=== PATIENT | male | born 1970 | race Caucasian/White ===

== ENCOUNTER → 2019-10-17 | Outpatient (CLI) | payer OTHER, SELFPAY | PROVIDERS: Family Provider Nurse Practitioner; Visit Provider Internal Medicine Cardiovascular Disease | DX: R07.89 Other chest pain (principal) | CPT/HCPCS: 93017; 93350 ==

== ENCOUNTER 2019-11-15 16:21 | Outpatient (CLI) | payer OTHER, SELFPAY ==
--- NOTE | 2019-11-15 16:53 | MR_ITS ---
WS: [id number] MRI LEFT KNEE NONCONTRAST TECHNIQUE: Axial PD, coronal PD fat sat, coronal PD, sagittal PD, and sagittal PD fat-sat images obta ined. CLINICAL INFORMATION: PAIN IN LEFT KNEE COMPARISON: None. FINDINGS: Distal quadriceps and patella tendons are intact. Anterior cruciate and posterior cruciate ligaments are intact. Prepatellar soft tissue edema. Chronic thinning of both medial and lateral meniscus. No acute appearing meniscal tears. Mild chondromalacia patella. No subchondral edema. Medial and lateral collateral ligaments are intact . Hypertrophic changes along the joint line. Mild chondromalacia involving the medial and lateral jesse nt compartments. MR/MR knee LT wo con* [id number] IMPRESSION: 1. Anterior and posterior cruciate ligaments are intact. 2. Mild chondromalacia patella. 3. Joint space narrowing with mild chondromalacia involving the medial and lat eral joint compartments. 4. Chronic thinning of the medial and lateral meniscus. No acute appearing men iscal tears.
== END 2019-11-15 16:22 | disposition home or self-care (01) ==
LOC: RADSHAW 16:21
PROVIDERS: Family Provider Nurse Practitioner; PCP Nurse Practitioner; Visit Provider Nurse Practitioner
DX: M22.42 Chondromalacia patellae, left knee (principal); M25.562 Pain in left knee
CPT/HCPCS: 73721

== ENCOUNTER → 2020-01-22 10:09 | Outpatient (BNVA) | payer OTHER, SELFPAY | PROVIDERS: Family Provider Nurse Practitioner; PCP Nurse Practitioner; Referring Provider Nurse Practitioner; Visit Provider Specialist | DX: M25.562 Pain in left knee (principal) | CPT/HCPCS: 73560; 73565 ==

== ENCOUNTER 2020-02-09 06:10 | Day surgery (SDC) | payer OTHER, SELFPAY ==
[2020-02-08 14:26] VITALS: BMI 37.3
[2020-02-09] VITALS (10 sets, daily range): BP systolic 112–141; BP diastolic 72–95; PULSE 64–75; RESP 15–20; TEMP 36.2–36.6; O2SAT 94–100
--- NOTE | 2020-02-09 06:59 | P.HPUD_ITS ---
Surgery/Procedure H&P Update DATE OF PROCEDURE: February 09, 2020 DATE H&P PERFORMED: 01/22/20 H&P UPDATE INFORMATION: I have examined patient prior to procedure and H&P is in [facility] EMR on date indicated PREOP DIAGNOSIS: Internal derangement left knee PLANNED PROCEDURE: Operation Date: 02/09/20 07:35 Proposed Procedures p Knee Arthroscopy left with debridement 31304 M23.92(Left) - Romana Juarez MD
--- NOTE | 2020-02-09 06:59 | W.PM.OPSUD ---
Surgery/Procedure H&P Update DATE OF PROCEDURE: February 09, 2020 DATE H&P PERFORMED: 01/22/20 H&P UPDATE INFORMATION: I have examined patient prior to procedure and H&P is in [facility] EMR on date indicated PREOP DIAGNOSIS: Internal derangement left knee PLANNED PROCEDURE: Operation Date: 02/09/20 07:35 Proposed Procedures p Knee Arthroscopy left with debridement 42362 M23.92(Left) - Romana Juarez MD
[2020-02-09] MEDS: sodium chloride 0.9% 1,000 ML 30 ML IV (07:00)
[2020-02-09 07:04] LABS: Basophils # 0.1 10^3/uL (0.0-0.1); Basophils % 0.9 %; Eosinophils # 0.2 10^3/uL (0.0-0.8); Eosinophils % 3.2 %; Hematocrit 41.7 % (42.0-52.0); Hemoglobin 13.9 g/dL (11.7-16.6); Lymphocytes # 2.4 10^3/uL (0.8-4.8); Lymphocytes % 34.2 %; Mean Corpuscular HGB Conc 33.3 g/dL (30.0-36.0); Mean Corpuscular Hemoglobin 30.5 pg (28.0-34.0); Mean Corpuscular Volume 91.6 fL (80-94); Mean Platelet Volume 9.2 fL (7.4-10.4); Monocytes # 0.6 10^3/uL (0.2-0.9); Monocytes % 8.6 %; Neutrophils # 3.7 10^3/uL (1.8-7.7); Neutrophils % 52.8 %; Nucleated Red Blood Cells % 0 %; Platelet Count 355 10^3/cmm (130-400); Red Blood Count 4.55 10^6/uL (4.1-5.3)
--- NOTE | 2020-02-09 07:11 | P.ANESASSM_ITS ---
Pre-Anesthetic Assessment Pre-Anesthetic Assessment: Height/Weight: Height 1.78 m Weight 117.934 kg Temp Pulse Resp BP Pulse Ox 97.3 F L 64 18 114/81 96 02/09/20 06:30 02/09/20 06:30 02/09/20 06:30 02/09/20 06:30 02/09/20 06:30 Preop Diagnosis: Internal derangement left knee Proposed Procedure: Operation Date: 02/09/20 07:35 Proposed Procedures p Knee Arthroscopy left with debridement 67899 M23.92(Left) - Romana Juarez MD Last intake: Intake Last Liquid Date 02/08/20 Last Liquid Time 21:00 Last Solid Date 02/08/20 Last Solid Time 19:30 Social: Social History: No alcohol and No tobacco Exam: Pre-Anes Outpt Exam: alert, oriented x 3, clear to auscultation bilaterally and regular rate & rhythm Airway: Submandibular: WNL Cervical ROM: WNL MP: 2 Dentition: Other (teeth ok) History/ROS: No significant history except as noted CV/HEM: CV/HEM: HTN : : None reported Hepatic: Hepatic: None reported GI: GI: None reported Metabolic: Metabolic: None reported Musc/skel: Musc/skel: Lower Back Pain Neuropsych: Neuropsych: Neuropathy (right foot) Anesthetic Plan: ASA status: 2 Anesthesia: Anesthesia Evaluation and General Risk of > 500 ml blood loss (7ml/kg in children): No Meds/Allergies Current Medications: Current Medications Generic Name Dose Route Start Last Admin Trade Name Freq PRN Reason Stop Dose Admin Sodium Chloride 1,000 mls @ 30 ml s/hr 02/09/20 06:15 02/09/20 07:00 Sodium Chloride 0.9% IV 02/10/20 06:14 30 mls/hr .Q24H HILARIO Administration PFSH Anesthesia PFSH: Medical History Atypical chest pain Cervicalgia Hypertension Leg pain Peripheral edema Sleep apnea Could not use the CPAP- mouth breather! Surgical History History of back surgery Family History Other CAD (coronary artery disease) Cancer Diabetes Hypertension Social History Smoking and tobacco status: never smoked Alcohol intake: never Data Anesthesia CBC & Chem 7: 02/09/20 06:50 Other Labs: Laboratory Results - last 48 hr 02/09/20 06:50 WBC 7.0 RBC 4.55 Hgb 13.9 Hct 41.7 L MCV 91.6 MCH 30.5 MCHC 33.3 RDW 12.0 L Plt Count 355 MPV 9.2 Neut % (Auto) 52.8 Lymph % (Auto) 34.2 [place] % (Auto) 8.6 Eos % (Auto) 3.2 Baso % (Auto) 0.9 Neut # (Auto) 3.7 Lymph # (Auto) 2.4 [place] # (Auto) 0.6 Eos # (Auto) 0.2 Baso # (Auto) 0.1 Nucleated RBC % (auto) 0 Nucleated RBCs # 0.0 Cardiac Studies: No Data to Display
[2020-02-09] MEDS: morphine 4 mg/mL SDV 1 mL 8 MG XX (08:37)
--- NOTE | 2020-02-09 09:09 | SUR.PHASEI ---
0908 PATIENT TO PACU AT THIS TIME FROM OR. RR EVEN AND UNLABORED. ORAL AIRWAY IN PLACE, SPO2 97% ON SIMPLE MASK AT 8L. DRESSING, CDI, TO LEFT KNEE. LEFT PEDAL PULSE INTACT.
--- NOTE | 2020-02-09 09:11 | SUR.PHASEI ---
0911 ORAL AIRWAY REMOVED. SPO2 97% ON SIMPLE MASK AT 8L.
--- NOTE | 2020-02-09 09:18 | P.OP_ITS ---
Operative Report Date of procedure: February 09, 2020 Pre-op Diagnosis: Internal derangement left knee Post-op Diagnosis: Partial medial and lateral meniscal tears with chondromalacia patellofemoral and medial compartment Procedure Done: Left arthroscopic knee surgery with partial medial and lateral meniscectomies with minimal chondroplasty and debridement of synovium Specimens removed/disposition: Soft tissue, disposed of Pathology: none sent Surgeon: Romana Juarez Process Improvement Specialist: [facility] OR technicians Anesthesia: General (Intubated, ASA 2) Estimated blood loss (mL): 5 Tourniquet time (min): 34 IV fluids (mL): 800 Urine output: 0 mL, no Hernandez Complications: None Findings: Synovitis particularly anteriorly, chondromalacia of the trochlear groove and medial tibial plateau as well as the degenerative type medial and lat eral meniscal tears Condition: stable Disposition: PACU (Then to outpatient for further recovery prior to discharge home with family) Brief History: This 49-year-old gentleman presented to my office with diffuse complaints of knee pain. An MRI obtained in October of this year demonstrated the followin. Anterior and posterior cruciate ligaments are intact. 2. Mild chondromalacia patella. 3. Joint space narrowing with mild chondromalacia involving the medial and lateral joint compartments. 4. Chronic thinning of the medial and lateral meniscus. No acute appearing meniscal tears. He continued to have symptoms, and when he was unresponsive to nonoperative measures, the patient wished to proceed with surgical intervention. Procedure: Patient was brought to the operating theater and after undergoing adequate general intubated anesthesia, the patient's left lower extremity was prepped and draped in usual fashion utilizing DuraPrep. A tourniquet was placed high on the leg prior to prepping and draping. The tourniquet was elevated prior to commencement of the surgical procedure to 250 mmHg. Total tourniquet time was 34 minutes. Elevation followed prepping and exsanguination. Prior to commencement of the surgical procedure, a surgical pause was performed. At the time of the surgical pause, we identified the site and side of surgery. We also confirmed the patient's identity and appropriate and timely administration of preoperative antibiotics. Preoperative surgical markings were also visualized at this time. Standard arthroscopic portals were utilized including superolateral, inferomedial, and inferolateral portals. The examination commenced in the suprapatellar pouch area where the patient was noted to have chondromalacia of the trochlear groove, but this was minimal. The arthroscope was then passed in the medial compartment where there was noted to be posterior third medial meniscal redundancy and degenerative tearing. The arthroscope was then passed across the notch area where anterior cruciate ligament was visualized and found to be intact, but there was significant synovitis in this area. The scope was passed into the lateral compartment with the knee in a [id number] position. Lateral meniscus was noted to have significant redundancy with degenerative tearing of the posterior third but also anterior horn. This was addressed with a combination of the intra-articular shaver as well as the intra-articular heat wand. Following debridement of the meniscus, it was palpated and was found to be well balanced and not displaceable into the joint. Scope was then returned to the medial compartment where the medial meniscus was palpated. There was also found to be significant chondromalacia of the medial tibial plateau. The meniscus was palpated and found to be not displaceable into the knee joint. A debridement of the meniscus was accomplished utilizing the heat wand as well as the intra-articular shaver. In this way, we were able to well balance the inner rim of the meniscus. The arthroscope was then returned to the patellofemoral joint where a minimal chondroplasty was performed of the trochlear groove. This chondroplasty involved use of the intra-articular shaver as well as the heat wand. Once the patella had been addressed, the scope was passed back through the knee compartments to evaluate for other abnormalities. Significant synovectomy had been accomplished. Finding none, attention was directed to closure. The knee was copiously irrigated and suctioned dry. Following this, each portal was closed with a simple suture followed by Exofin and Tegaderm. Additionally, the knee was injected with 20 mL of half percent ropivacaine and 8 mg of morphine. Additional 10 mL of ropivacaine was placed about the portals. Sterile dressing was placed consisting of the Tegaderm followed by the Blake wrap. Patient was returned to Recovery Room in satisfactory condition where he will be discharged home to follow-up with me in the office as scheduled. There were no complications and no specimens.
[2020-02-09] MEDS: fentaNYL 50 mcg/mL INJ 2mL IVP (09:26)
--- NOTE | 2020-02-09 09:39 | SUR.PHASEI ---
0936 PATIENT TO OPS AT THIS TIME. RR EVEN AND UNLABORED. DRESSING INTACT TO LEFT KNEE, LEFT PEDAL PULSE PRESENT. PATIENT RATES PAIN 7/10, WANTING A PAIN PILL IN OPS.
--- NOTE | 2020-02-09 09:41 | SUR.PHASEI ---
0936 ANESTHESIA AWARE OF LAST DOSE OF PAIN MEDICATION.
== END 2020-02-09 10:15 | disposition home or self-care (01) ==
PROVIDERS: Family Provider Nurse Practitioner; PCP Nurse Practitioner; Visit Provider Specialist
PROC: (CPT 29870; principal; 2020-02-09 07:35)
DX: M23.92 Unspecified internal derangement of left knee (principal); I10 Essential (primary) hypertension; G47.30 Sleep apnea, unspecified; Z82.49 Family history of ischemic heart disease and other diseases of the circulatory system; Z83.3 Family history of diabetes mellitus
CPT/HCPCS: 29880; 12345; 36415; 85025; 96365; J0330; J0690; J1885; J2001; J2250; J2270; J2405; J2704; J2795; J3010; J3490; J7030

== ENCOUNTER → 2020-05-15 08:45 | Outpatient (BNVA) | payer OTHER, SELFPAY | PROVIDERS: PCP Nurse Practitioner; Visit Provider Specialist | DX: M25.569 Pain in unspecified knee (principal) | CPT/HCPCS: 73560; 73565 ==

== ENCOUNTER 2020-05-27 11:49 | Outpatient (RCR) | payer OTHER, SELFPAY | END 2020-06-17 23:59 | disposition home or self-care (01) | LOC: SPT 11:49 | PROVIDERS: PCP Nurse Practitioner; Referring Provider Specialist; Visit Provider Specialist | DX: Z47.89 Encounter for other orthopedic aftercare (principal) | CPT/HCPCS: 97110; 97161 ==

== ENCOUNTER 2020-06-18 06:00 | Outpatient (RCR) | payer OTHER, SELFPAY | END 2020-06-27 23:00 | disposition home or self-care (01) | LOC: SPT 06:00 | PROVIDERS: PCP Nurse Practitioner; Referring Provider Specialist; Visit Provider Specialist | DX: Z47.89 Encounter for other orthopedic aftercare (principal) | CPT/HCPCS: 97110 ==

== ENCOUNTER 2020-10-29 11:58 | Emergency (ER) | payer OTHER, MEDICARE, SELFPAY ==
[2020-10-29] VITALS (7 sets, daily range): BP systolic 111–131; BP diastolic 63–83; PULSE 86–97; RESP 16–20; TEMP 36.2; O2SAT 86–95; BMI 35.9
--- NOTE | 2020-10-29 12:10 | ED_ITS ---
HPI - COVID General: Chief Complaint: Shortness of Breath/Dyspnea Stated Complaint: COVID+/LOW O2 LEVELS Time Seen by Provider: 10/29/20 12:04 Source: patient Mode of arrival: ambulatory Limitations: no limitations Triage information: Has fever, cough or shortness of breath . Exposure to COVID + person last 14 days History of Present Illness: HPI Narrative: Patient is a 50-year-old male presents to ED today with a complaint of shortness of breath and hypoxia. Patient tells me he tested positive for COVID 10 days ago. He tells me he began having symptoms approximately 13 days ago. Patient tells me he was doing good with his infection up until yesterday when he began noticing low O2 levels on a finger O2 sensor he has been using at home. He states oxygen will dip down to 85% when sleeping and with any form of activity. He complains of feeling mildly short of breath. He is not having any chest pain. No fevers. No cough. MD complaint: known COVID positive COVID 19 common symptoms: positive dyspnea (with exertion ); negative fever(s), chills, non-productive cough, productive cough, fatigue, body aches, headache(s), nausea, vomiting or diarrhea COVID 19 other sytmptoms: negative chest pain Pertinent comorbid conditions: hypertension COVID Results: No Data to Display Review of Systems Const: Denies: fever(s), chills, body aches, fatigue or malaise Eyes: Denies: change in vision or blurry vision ENMT: Denies: odynophagia Card: Denies: chest pain, palpitations, irregular heart rhythm, lightheadedness, syncope or dyspnea on exertion Resp: Reports: dyspnea (with exertion ); Denies: productive cough, non-productive cough, wheezing, stridor, pain on inspiration, change in phlegm color, hemoptysis or chest congestion GI: Denies: abdominal pain, nausea, vomiting, heartburn or diarrhea : Denies: difficulty urinating or dysuria Musc: Denies: neck pain, back pain or joint pain Skin/Breast: Denies: rash Neuro: Denies: headache(s) PFS ED PFSH: Medical History (Updated 10/29/20 @ 15:06 by AMBROCIO Almaraz) Atypical chest pain Cervicalgia Hypertension Leg pain Peripheral edema Sleep apnea Could not use the CPAP- mouth breather! Surgical History History of back surgery Family History Other CAD (coronary artery disease) Cancer Diabetes Hypertension Social History Smoking and tobacco status: never smoked Alcohol intake: never Physical Exam Const: COMMON NORMALS: no acute distress, average body habitus, patient oriented x3, no limitations, healthy appearing, alert and well nourished OTHER: pts O2 noted to drop to 89% while he is speaking to me Resp: COMMON NORMALS: normal respiratory effort and clear to auscultation bilaterally AUSCULTATION: clear to auscultation bilaterally Cardio: COMMON NORMALS: regular rate and regular rhythm RATE: regular rate RHYTHM: regular rhythm Neuro: COMMON NORMALS: patient oriented x3 SENSORIUM/ORIENTATION: Yes alert Course Vital Signs: Vital signs: Vital Signs Temperature 97.2 F L 10/29/20 12:04 Pulse Rate 86 10/29/20 13:47 Respiratory Rate 16 10/29/20 13:47 Blood Pressure 128/68 10/29/20 13:47 Pulse Oximetry 94 10/29/20 13:47 MDM - COVID MDM Narrative: Medical decision making narrative: Patient is no acute distress on exam. He does have some mild hypoxia (89%) when talking. He is non-ill, non- toxic appearing. Due to test/symptom onset he does not qualify for BAM infusion. RT has evaluated patient here and reports he does qualify for home O2 (pts sats dropped in the 80s after he was walked around the room-he does quickly recover with rest). Patient's d-dimer is elevated. He will need CTA to rule out pulmonary embolus-this was negative. Patient will be sent home with O2 and CM will set him up with [facility] Return to ED precautions given. Lab Data: Labs: Lab Results 10/29/20 10/29/20 10/29/20 Range/Units 12:55 12:55 12:55 WBC 8.5 (4.0-10.0) 10^3/ uL RBC 4.38 (4.1-5.3) 10^6/u L Hgb 13.3 (11.7-16.6) g/dL Hct 39.1 L (42.0-52.0) % MCV 89.3 (80-94) fL MCH 30.4 (28.0-34.0) pg MCHC 34.0 (30.0-36.0) g/dL RDW 11.4 L (12.1-15.1) % Plt Count 270 (130-400) 10^3/c mm MPV 9.3 (7.4-10.4) fL Neut % (Auto) 83.9 % Lymph % (Auto) 8.4 % [place] % (Auto) 7.3 % Eos % (Auto) 0.1 % Baso % (Auto) 0.1 % Neut # (Auto) 7.15 (1.8-7.7) 10^3/u L Lymph # (Auto) 0.7 L (0.8-4.8) 10^3/u L [place] # (Auto) 0.6 (0.2-0.9) 10^3/u L Eos # (Auto) 0.0 (0.0-0.8) 10^3/u L Baso # (Auto) 0.0 (0.0-0.1) 10^3/u L Nucleated RBC % (a uto) 0 % Nucleated RBCs # 0.0 /100WBC D-Dimer 0.97 H (0-0.59) ug/mIFE U Sodium 133 L (136-145) mmol/L Potassium 3.8 (3.5-5.1) mmol/L Chloride 97 L (98-107) mmol/L Carbon Dioxide 27 (22-29) mmol/L Anion Gap 12.8 (5-19) BUN 14 (6-20) mg/dL Creatinine 1.0 (0.7-1.2) mg/dL GFR Calculation 79.4 L (90-130) mL/min Glucose 134 H (65-115) mg/dL Calculated Osmolal ity 278 L (285-295) mOsm/k g Calcium 8.6 (8.5-10.5) mg/dL Total Bilirubin 0.5 (0.15-1.2) mg/dL AST 26 (0-40) U/L ALT 30 (0-41) U/L Alkaline Phosphata se 55 (40-130) IU/L C-Reactive Protein 67.7 H (0.0-4.9) mg/L Total Protein 7.2 (6.6-8.7) g/dL Albumin 3.8 (3.5-5.2) g/dL Globulin 3.4 (1.3-4.6) g/dL Imaging Data: CXR: Radiologist's impression: Robert Applebaum MD [address] [place] [address] XRay Report Signed Patient: Jj Abarca #: [id number] : 1970Acct#:[id number] Age/Sex: 50 / MADM Date: 10/29/20 Loc: [facility]/Bed: Attending Dr: Ordering Provider/Ordering MD: Carole Ross Date of Service: 10/29/20 Procedure(s): XR chest 1V portable [id number] Accession Number(s): [id number] Report Number: [id number] PROCEDURE INFORMATION: Exam: XR Chest, 1 View Exam date and time: 10/29/2020 12:27 PM Age: 50 years old Clinical indication: Shortness of breath; Additional info: NIMO Murphy TECHNIQUE: Imaging protocol: XR of the chest Views: 1 view. COMPARISON: No relevant prior studies available. FINDINGS: Lungs: There are patchy hazy interstitial infiltrates in the left lung which are consistent with a viral pneumonitis. The right lung is clear. Pleural space: Unremarkable. No pleural effusion. No pneumothorax. Heart/Mediastinum: Unremarkable. No cardiomegaly. Bones/joints: Unremarkable. XR/XR chest 1V portable [id number] IMPRESSION: Mild patchy hazy interstitial infiltrates in the left lung consistent with a viral pneumonitis. Dictated By:Juan Cali Signed By:Shira Cali Date/Time:10/29/20 1245 DD/ 1244 CTA Chest: Radiologist's impression: Robert Applebaum MD [address] [place] [id number] Scan Report Signed Patient: Jj Abarca #: [id number] : 1970Acct#:[id number] Age/Sex: 50 / MADM Date: 10/29/20 Loc: [facility]/Bed: Attending Dr: Ordering Provider/Ordering MD: Carole Ross Date of Service: 10/29/20 Procedure(s): CT angio chest PE protcl [id number] Accession Number(s): [id number] Report Number: [id number] WS: [id number] CTA OF THE CHEST WITH PULMONARY EMBOLISM PROTOCOL TECHNIQUE: High-resolution contrast enhanced CTA of the chest with coronal and sagittal reformatted images with pulmonary embolism protocol. MIP images are also reviewed. CLINICAL INFORMATION: SOB, hypoxia, COVID; elevated d dimer COMPARISON: None. DLP: 534.[address] scans at [facility] use at least one of these dose optimization techniques: automated exposure control; mA and/or kV adjustment per patient size (includes targeted exams where dose is matched to clinical indica tion); or iterative reconstruction. FINDINGS: Proximal main pulmonary arteries are normal. Normal segmental and subsegmental pulmonary arteries. No filling defects. No evidence of pulmonary embolus. Moderate chronic emphysematous changes. Hazy groundglass infiltrates in the perihilar regions and both lower lobes. No focal consolidation. No significant pleural fluid. Normal caliber thoracic aorta. Enlarged right hilar lymph nodes likely reactive. Adrenal glands are normal. Normal GE junction. CT/CT angio chest PE protcl [id number] IMPRESSION: 1. No evidence of pulmonary embolus. 2. Patchy bilateral groundglass pulmonary infiltrates worse in the perihilar regions and both lower lobes compatible with Covid19 pneumonia. 3. Enlarged right hilar lymph nodes likely reactive. 4. No other significant findings. Dictated By:Asim Beauchamp MD Signed By:Asim Beauchamp MDSigned Date/Time:10/29/20 1441 DD/ 1434 COVID Results: No Data to Display Discharge Plan Discharge Patient Disposition: Home Clinical Impression: COVID-19, Pneumonia due to COVID-19 virus Condition: Stable Prescriptions: New azithromycin 500 mg tablet See Rx Instructions .ROUTE .COMPLEX Qty: 3 RF: 0 No Action oxycodone 10 mg tablet 10 mg PO TID PRN (Reason: Pain) RF: 0 lisinopril-hydrochlorothiazide 20-12.5 mg tablet 1 tab PO DAILY RF: 0 amlodipine 10 mg tablet 10 mg PO QDAY RF: 0 carvedilol 25 mg tablet 25 mg PO BID RF: 0 naproxen 500 mg tablet 500 mg PO BID Qty: 60 RF: 0 Discharge Orders: Discharge ED (Routine); Ordered 10/29/20 Ordered By: Carole Ross Other Ambulatory Orders: DME: Oxygen (Order) Location: None Selected Ordered By: Carole Ross Referrals: Zee Garcia FNP [Primary Care Provider] - Activity Restrictions/Additional Instructions: As discussed we will try to get you a [facility]. You need to return to the emergency department for worsening shortness of breath, chest pain, fevers uncontrolled with cyob-mgv-[id number] Tylenol, or any other concerns you may have. Coding Level of Care Code ED High Wire Artist for Eusebia Ayers Exam Expanded Problem Focused
--- NOTE | 2020-10-29 12:25 | XRR_ITS ---
PROCEDURE INFORMATION: Exam: XR Chest, 1 View Exam date and time: 10/29/2020 12:27 PM Age: 50 years old Clinical indication: Shortness of breath; Additional info: NIMO Murphy TECHNIQUE: Imaging protocol: XR of the chest Views: 1 view. COMPARISON: No relevant prior studies available. FINDINGS: Lungs: There are patchy hazy interstitial infiltrates in the left lung which are consistent with a viral pneumonitis. The right lung is clear. Pleural space: Unremarkable. No pleural effusion. No pneumothorax. Heart/Mediastinum: Unremarkable. No cardiomegaly. Bones/joints: Unremarkable. XR/XR chest 1V portable [id number] IMPRESSION: Mild patchy hazy interstitial infiltrates in the left lung consistent with a viral pneumonitis.
[2020-10-29 13:18] LABS: Basophils % 0.1 %; Eosinophils % 0.1 %; Hematocrit 39.1 % (42.0-52.0); Hemoglobin 13.3 g/dL (11.7-16.6); Lymphocytes # 0.7 10^3/uL (0.8-4.8); Lymphocytes % 8.4 %; Mean Corpuscular Hemoglobin 30.4 pg (28.0-34.0); Mean Corpuscular Volume 89.3 fL (80-94); Mean Platelet Volume 9.3 fL (7.4-10.4); Monocytes # 0.6 10^3/uL (0.2-0.9); Monocytes % 7.3 %; Neutrophils # 7.15 10^3/uL (1.8-7.7); Neutrophils % 83.9 %; Nucleated Red Blood Cells % 0 %; Platelet Count 270 10^3/cmm (130-400); Red Blood Count 4.38 10^6/uL (4.1-5.3); Red Cell Distribution Width 11.4 % (12.1-15.1); White Blood Count 8.5 10^3/uL (4.0-10.0)
[2020-10-29 13:44] LABS: Alanine Aminotransferase 30 U/L (0-41); Albumin Level 3.8 g/dL (3.5-5.2); Alkaline Phosphatase 55 IU/L (40-130); Anion Gap 12.8 (5-19); Aspartate Amino Transferase 26 U/L (0-40); Blood Urea Nitrogen 14 mg/dL (6-20); C Reactive Protein 67.7 mg/L (0.0-4.9); Calcium 8.6 mg/dL (8.5-10.5); Carbon Dioxide 27 mmol/L (22-29); Chloride 97 mmol/L (98-107); Globulin 3.4 g/dL (1.3-4.6); Glomerular Filtration Rate 79.4 mL/min (90-130); Glucose 134 mg/dL (65-115); Osmolality Calculated 278 mOsm/kg (285-295); Potassium 3.8 mmol/L (3.5-5.1); Sodium 133 mmol/L (136-145); Total Bilirubin 0.5 mg/dL (0.15-1.2); Total Protein 7.2 g/dL (6.6-8.7)
[2020-10-29 13:45] LABS: D Dimer 0.97 ug/mIFEU (0-0.59)
--- NOTE | 2020-10-29 13:48 | CT_ITS ---
WS: [id number] CTA OF THE CHEST WITH PULMONARY EMBOLISM PROTOCOL TECHNIQUE: High-resolution contrast enhanced CTA of the chest with coronal and sagittal reformatted i mages with pulmonary embolism protocol. MIP images are also reviewed. CLINICAL INFORMATION: SOB, hypoxia, COVID; elevated d dimer COMPARISON: None. DLP: 534.[address] scans at [facility] use at least one of these dose optimization techniques: automat ed exposure control; mA and/or kV adjustment per patient size (includes targeted exams where dose is matched to clinical indication); or iterative reconstruction. FINDINGS: Proximal main pulmonary arteries are normal. Normal segmental and subsegmental pulmonary arteries. No filling defects. No evidence of pulmonary embolus. Moderate chronic emphysematous changes. Hazy grou ndglass infiltrates in the perihilar regions and both lower lobes. No focal consolidation. No signifi cant pleural fluid. Normal caliber thoracic aorta. Enlarged right hilar lymph nodes likely reactive. Adrenal glands are normal. Normal GE junction. CT/CT angio chest PE protcl [id number] IMPRESSION: 1. No evidence of pulmonary embolus. 2. Patchy bilateral groundglass pulmonary infiltrates worse in the perihilar r egions and both lower lobes compatible with Covid19 pneumonia. 3. Enlarged right hilar lymph nodes likely reactive. 4. No other significant findings.
[2020-10-29] MEDS: iohexol 350 mg/mL 100 mL Btl IV (14:20)
[2020-10-29] MEDS: dexamethasone 4 mg/mL INJ 6 MG IVP (16:39)
== END 2020-10-29 16:41 | disposition home or self-care (01) ==
PROVIDERS: Emergency Provider Physician Assistant; PCP Nurse Practitioner
DX: U07.1 COVID-19 (principal); J12.82 Pneumonia due to coronavirus disease 2019; I10 Essential (primary) hypertension
CPT/HCPCS: 12345; 71045; 71275; 80053; 85025; 85378; 86140; 96374; 99283; J1100; Q9967

== ENCOUNTER → 2021-09-15 13:43 | Outpatient (BNVA) | payer OTHER, SELFPAY | PROVIDERS: PCP Nurse Practitioner; Visit Provider Surgery | DX: Z20.822 Contact with and (suspected) exposure to COVID-19 (principal); Z11.52 Encounter for screening for COVID-19 | CPT/HCPCS: 87635 ==

== ENCOUNTER 2021-09-18 07:12 | Day surgery (SDC) | payer OTHER, SELFPAY ==
[2021-09-15 15:57] VITALS: BMI 35.9
[2021-09-18 07:51] VITALS: BP 124/86; PULSE 73; RESP 18; TEMP 36.1; O2SAT 97
--- NOTE | 2021-09-18 07:52 | ANES.PREANE2 ---
Pre-Anesthetic Assessment Pre-Anesthetic Assessment: Height/Weight: Height 1.78 m Weight 113.398 kg Preop Diagnosis: diagnostic Proposed Procedure: Operation Date: 09/18/21 08:45 Proposed Procedures p Colonoscopy 63253 z86.010(Not Applicable) - Ambrocio Mays MD Was Beta Rayshawn taken within 24 hours: N/A Was Clonidine taken within 24 hours: N/A Social: Social History: No alcohol and No tobacco Airway: Submandibular: WNL Cervical ROM: WNL MP: 4 Dentition: Full History/ROS: No significant history except as noted Pulmonary: Comments: BETHANY does not use CPAP. CV/HEM: CV/HEM: HTN : : None reported Hepatic: Hepatic: None reported GI: GI: None reported Metabolic: Metabolic: None reported Musc/skel: Musc/skel: None reported Comments: Chronic pain Neuropsych: Neuropsych: None reported Anesthetic Plan: ASA status: 3 (51 year old male with untreated sleep apnea) Anesthesia: Anesthesia Evaluation, General and MAC PFSH Anesthesia PFSH: Medical History Cervicalgia Hypertension Sleep apnea Could not use the CPAP- mouth breather! Surgical History History of arthroscopy of left knee History of back surgery History of colonoscopy Family History Father CAD (coronary artery disease) Stroke Lung disease Mother Stroke CAD (coronary artery disease) Cancer Chronic kidney disease (CKD) Diabetes Grandmother Cancer Other Hypertension Denies family history of Clotting disorder Dementia Suicide Anesthesia complication Bleeding disorder Social History Smoking and tobacco status: never smoked Alcohol intake: never Data Anesthesia Cardiac Studies: No Data to Display
[2021-09-18] MEDS: sodium chloride 0.9% 1,000 ML 30 ML IV (07:55)
--- NOTE | 2021-09-18 09:24 | W.PM.OPSFHP ---
Same Day Surgery H&P Indication for Procedure/HPI DATE OF PROCEDURE: September 18, 2021 CHIEF COMPLAINT/INDICATIONFOR SURGICAL PROCEDURE: gerd PREOP DIAGNOSIS: diagnostic PLANNED PROCEDRUE: Operation Date: 09/18/21 08:45 Proposed Procedures p Colonoscopy 31117 [id number](Not Applicable) - Ambrocio Mays MD Medications/Allergies* Home Medications Medication Instructions Recorded Confirmed Type amlodipine 10 mg tablet 10 mg PO QDAY 11/12/19 09/18/21 History carvedilol 25 mg tablet 25 mg PO BID 11/12/19 09/18/21 History lisinopril 20 1 tab PO DAILY 11/12/19 09/18/21 History mg-hydrochlorothiazide 12.5 mg tablet oxycodone 10 mg tablet 10 mg PO TID PRN 11/12/19 09/18/21 History polyethylene glycol 3350 17 17 g PO DAILY PRN 08/25/21 09/18/21 History gram/dose oral powder Allergies/Adverse Reactions Allergy/AdvReac Type Severity Reaction Status Date / Time No Known Allergies Allergy Verified 09/15/21 15:59 Current Medications: Generic Name Dose Route Start Last Admin Trade Name Freq PRN Reason Stop Dose Admin Sodium Chloride 1,000 mls @ 30 mls/hr 09/18/21 07:45 09/18/21 07:55 Sodium Chloride 0.9% IV 09/19/21 07:44 30 mls/hr .Q24H HILARIO Administration Pertinent History/Comorbid Conditions* Medical History (Updated 07/25/21 @ 11:48 by Ambrocio Mays MD) Cervicalgia Hypertension Sleep apnea Could not use the CPAP- mouth breather! Surgical History (Updated 07/25/21 @ 11:48 by Ambrocio Mays MD) History of arthroscopy of left knee History of back surgery History of colonoscopy Family History (Updated 03/06/21 @ 15:14 by Marylou Villa RN) Diabetes Mother CAD (coronary artery disease) Father Mother Chronic kidney disease (CKD) Mother Lung disease Father Cancer Mother Grandmother Hypertension Stroke Father Mother Denies family history of Clotting disorder Dementia Suicide Anesthesia complication Bleeding disorder Social History Smoking and tobacco status: never smoked Alcohol intake: never Pertinent Exam Findings alert, oriented x 3 and regular rate & rhythm Recommendations Surgery/Procedure today Coding Level of Care Code Acute Skein Inspector for Eusebia Ayers
[2021-09-18 09:47] VITALS: BP 91/66; PULSE 79; RESP 16; TEMP 36.5; O2SAT 94
[2021-09-18 10:09] VITALS: BP 144/66; PULSE 82; RESP 18; O2SAT 98
--- NOTE | 2021-09-18 13:19 | ANE.PACU2 ---
Inpatient post-anesthesia follow up: Vital signs: Temperature 97.7 F Pulse Rate 82 Respiratory Rate 18 Blood Pressure 144/66 Pulse Oximetry 98 Oxygen Delivery Me thod Room Air Oxygen Flow Rate Fraction of Inspir ed Oxygen Hydration adequate: Yes Nausea and vomiting: Yes Pain level: 1 Mental status: Baseline
== END 2021-09-18 10:12 | disposition home or self-care (01) ==
PROVIDERS: PCP Nurse Practitioner; Visit Provider Surgery
PROC: 0DJD8ZZ Inspection of Lower Intestinal Tract, Via Natural or Artificial Opening Endoscopic (ICD-10-PCS; CPT 45378; principal; 2021-09-18 08:45)
DX: Z12.11 Encounter for screening for malignant neoplasm of colon (principal); Z86.010 Personal history of colon polyps; K64.8 Other hemorrhoids; I10 Essential (primary) hypertension; G47.30 Sleep apnea, unspecified; Z82.49 Family history of ischemic heart disease and other diseases of the circulatory system; Z83.3 Family history of diabetes mellitus; G47.33 Obstructive sleep apnea (adult) (pediatric)
CPT/HCPCS: 96360; 96361; G0121; J2704; J7030

== ENCOUNTER → 2023-06-22 13:38 | Outpatient (BNVA) | payer OTHER, SELFPAY | PROVIDERS: PCP Nurse Practitioner; Visit Provider Internal Medicine Cardiovascular Disease | DX: I11.9 Hypertensive heart disease without heart failure (principal); G47.33 Obstructive sleep apnea (adult) (pediatric) | CPT/HCPCS: 99213 ==

== ENCOUNTER 2023-07-07 13:43 | Outpatient (CLI) | payer OTHER, SELFPAY ==
--- NOTE | 2023-07-07 13:45 | USCV_ITS ---
Jj Abarca Age: 53 Gender: M : 1970 Exam Date: 07/07/2023 14:01 Ordering Phys: Abdifatah Ventura MD ([email or web address]) Technologist: [email or web address] Exam Location: [facility] [place] Indication: cardiomegaly BP: 125 / 82 HR: 71 Rhythm: Sinus Technical Quality: Adequate MEASUREMENTS (Male / Female) Normal Values 2D ECHO LV Diastolic Diameter PLAX 3.0 cm 4.2 - 5.9 / 3.9 - 5.3 cm LV Systolic Diameter PLAX 2.6 cm LV Chamber Size 4.4 cm IVS Diastolic Thickness 1.1 cm 0.6 - 1.0 / 0.6 - 0.9 cm IVS Systolic Thickness 1.4 cm LVPW Diastolic Thickness 1.7 cm 0.6 - 1.0 / 0.6 - 0.9 cm LVPW Systolic Thickness 1.5 cm RV Chamber Size 4.9 cm LVOT Diameter 2.1 cm LV Ejection Fraction 2D Teich 31.1 % LA Diameter 3.4 cm LA Width 3.0 cm LA Height 3.8 cm RA Width 2.9 cm RA Height 3.6 cm Aorta at Sinotubular Diameter 3.0 cm IVC Diameter 1.9 cm M-MODE Aortic Annulus Diameter 3.5 cm LA Ao Ratio MM 1.0 MV E Point Septal Separation 0.4 cm DOPPLER AV Peak Velocity 139.0 cm/s LVOT Peak Velocity 93.0 cm/s AV Area Cont Eq vti 2.5 cm squared AV Area Cont Eq pk 2.3 cm squared MV Area PHT 3.1 cm squared Mitral E to A Ratio 1.2 MV E' Velocity 39.0 cm/s Mitral E to MV E' Ratio 7.3 Mitral E to LV E' Lateral Ratio 7.2 Mitral E to LV E' Septal Ratio 7.5 TR Peak Velocity 142.9 cm/s TR Peak Gradient 8.2 mmHg TR Mean Velocity 69.3 cm/s TR Mean Gradient 2.3 mmHg TR Velocity Time Integral 21.6 cm TV Peak E Velocity 75.0 cm/s Right Atrial Pressure 3.0 mmHg Pulmonary Artery Systolic Pressu 11.2 mmHg RV Acceleration Time 0.1 s RV Ejection Time 0.4 s RV AcT/ET 0.4 FINDINGS Left Ventricle Left ventricle is normal in size. LV systolic function is normal with EF of 55 to 60%. No regional wall motion abnormalities are seen. Right Ventricle Normal in size and function Right Atrium Normal in size Left Atrium Normal in size Mitral Valve Structurally normal mitral valve. Trace mitral regurgitation Aortic Valve Structurally normal aortic valve. No significant stenosis. Mild aortic regurgitation. Tricuspid Valve Mild tricuspid regurgitation. Insufficient TR jet to evaluate RVSP. Pulmonic Valve Not well visualized Pericardium Normal Aorta Normal in size IVC Appears to be normal CONCLUSIONS LV systolic function is normal with EF of 55 to 60%. Trace mitral regurgitation Mild aortic regurgitation Mild tricuspid regurgitation No comparison studies are available. Joe Roberts MD (Electronically Signed) Final Date: 11 July 2023 14:38 S
== END 2023-07-07 13:44 | disposition home or self-care (01) ==
PROVIDERS: PCP Nurse Practitioner; Visit Provider Internal Medicine Cardiovascular Disease
DX: I10 Essential (primary) hypertension (principal); I35.1 Nonrheumatic aortic (valve) insufficiency; I07.1 Rheumatic tricuspid insufficiency
CPT/HCPCS: 93306

== ENCOUNTER → 2023-11-25 12:40 | Outpatient (BNVA) | payer OTHER, SELFPAY | PROVIDERS: PCP Nurse Practitioner; Referring Provider Nurse Practitioner; Visit Provider Internal Medicine Cardiovascular Disease | DX: I10 Essential (primary) hypertension (principal) | CPT/HCPCS: 99213 ==

== ENCOUNTER → 2024-03-17 09:32 | Outpatient (BNVA) | payer OTHER, SELFPAY | PROVIDERS: PCP Nurse Practitioner; Visit Provider Internal Medicine Cardiovascular Disease | DX: I10 Essential (primary) hypertension (principal); G47.33 Obstructive sleep apnea (adult) (pediatric) | CPT/HCPCS: 99213 ==

== ENCOUNTER 2024-06-09 09:00 | Outpatient (CLI) | payer OTHER, SELFPAY ==
--- NOTE | 2024-06-09 09:03 | US_ITS ---
WS: [id number] RIGHT UPPER QUADRANT ULTRASOUND HISTORY: ELEVATED LIVER ENZYMES COMPARISON: 07/28/2013. Study is significantly compromised by patient's body habitus. Liver: 16.8 cm in length. Entire liver is not very well visualized. Hepatic steatosis. No mass or ethel e duct dilatation. Portal Vein: Normal hepatopetal flow with monophasic waveform. Gallbladder: Normally distended gallbladder with no stones or wall thickening. CBD: 0.5 cm Pancreas: Not visualized. Right kidney: 10.8 cm in length. Normal size and echogenicity. No hydronephrosis or mass. Aorta and IVC: Unremarkable abdominal aorta and IVC. No ascites. US/US abdomen limited [id number] IMPRESSION: 1. Quality the examination is compromised by body habitus. 2. Hepatic steatosis. 3. Negative gallbladder.
== END 2024-06-09 09:03 | disposition home or self-care (01) ==
PROVIDERS: PCP Nurse Practitioner; Visit Provider Nurse Practitioner
DX: Z01.89 Encounter for other specified special examinations (principal); K76.0 Fatty (change of) liver, not elsewhere classified
CPT/HCPCS: 76705

== ENCOUNTER → 2024-08-29 13:15 | Outpatient (BNVA) | payer OTHER, SELFPAY | PROVIDERS: PCP Nurse Practitioner; Visit Provider Internal Medicine Cardiovascular Disease | DX: I51.7 Cardiomegaly (principal); I10 Essential (primary) hypertension; I42.9 Cardiomyopathy, unspecified | CPT/HCPCS: 99214 ==